=== PATIENT | female | born 1965 | race Caucasian/White ===

== ENCOUNTER 2016-08-10 10:11 | Observation (INO) | payer SELFPAY ==
[~2016-08-10] VITALS: Ht 160 cm; Wt 81.7 kg
[2016-08-10 10:52] LABS: BASOPHIL COUNT 0.1 K/uL (0-0.1); EOSINOPHIL (%) 1.3 % (0-5); EOSINOPHIL COUNT 0.1 K/uL (0-0.3); HEMATOCRIT 44.4 % (36.0-46.0); IMMATURE GRANULOCYTE (%) 0.7 % (0.0-0.7); IMMATURE GRANULOCYTE COUNT 0.1 K/uL; INSTRUMENT ABS NEUTROPHIL CT 6.7 K/uL; LYMPHOCYTE COUNT 2.3 K/uL (1.0-2.8); MCH 30.8 PG (29.0-34.0); MCHC 34.9 G/DL (30.0-36.0); MCV 88.3 FL (83-99); MEAN PLAT.VOLUME 11.1 uM^3 (9.5-12.4); MONOCYTE (%) 5.6 % (3-12); MONOCYTE COUNT 0.6 K/uL (0-0.8); NEUTROPHIL (%) 68.8 % (45-76); NEUTROPHIL COUNT 6.7 K/uL (1.8-6.4); PLATELET COUNT 244 K/uL (156-360); RBC DIS.WIDTH-CV 13.2 % (11.8-14.6); RED BLOOD COUNT 5.03 M/uL (3.80-5.20); WHITE BLOOD COUNT 9.8 K/uL (4.1-10.2)
[2016-08-10 11:11] LABS: CHLORIDE 103 mEq/L (99-109); POTASSIUM 3.9 mEq/L (3.7-5.4); SODIUM 137 mEq/L (136-147)
[2016-08-10 11:13] LABS: GLUCOSE 261 mg/dL (70-99)
[2016-08-10 11:15] LABS: ANION GAP 14 MEQ/L (2-14); TOTAL BILIRUBIN 0.5 mg/dL (0.0-1.0)
[2016-08-10 11:17] LABS: ALKALINE PHOSPHATASE 99 IU/L (3-129); GFR ESTIMATE (CALCULATED) > 59 mL/min/
[2016-08-10 11:18] LABS: UREA NITROGEN (BUN) 11 mg/dL (9-23)
[2016-08-10 11:21] LABS: TROP-I INTERPRETATION NEGATIVE; TROPONIN-I 0.03 ng/mL (0.0-0.30)
[2016-08-10 12:16] LABS: ADD MIUA? NO; BILIRUBIN NEGATIVE; BLOOD NEGATIVE; COLOR YELLOW ((YELLOW)); GLUCOSE (STRIP) >=500; KETONES NEGATIVE; LEUKOCYTES NEGATIVE; NITRITE NEGATIVE; PROTEIN (STRIP) NEGATIVE; SPECIFIC GRAVITY 1.006 (1.000-1.030); UROBILINOGEN 0.2 MG/DL (0.2-1.0)
[2016-08-10 13:23] LABS: HDL CHOLESTEROL 33 MG/DL (Desirable>=50); LDL CHOLESTEROL 150 mg/dL (Desirable<100); NON-HDL CHOLESTEROL 216 mg/dL (Desirable<160); TOTAL CHOLESTEROL 249 mg/dL (Desirable<200); TRIGLYCERIDES 329 MG/DL (Normal: <150)
[2016-08-10 14:24] LABS: Estimated Average Glucose 200 mg/dL (70-123); HEMOGLOBIN A1c (GLYCOHEMOGLOB) 8.6 % HGB (Below 5.7)
[2016-08-10 14:44] LABS: POINT-OF-CARE METER ID UU14162513
[2016-08-10 17:12] VITALS: BP 184/93
[2016-08-10 17:45] LABS: TROP-I INTERPRETATION NEGATIVE; TROPONIN-I 0.03 ng/mL (0.0-0.30)
[2016-08-10 18:35] VITALS: BP 158/84
[2016-08-10 19:40] VITALS: BP 152/88
[2016-08-10 21:07] LABS: METH RESISTANT S AUREUS PCR NEGATIVE (NEGATIVE)
[2016-08-10 21:15] LABS: PROBE CHECK PASS; SPECIMEN PROCESSING CONTROL PASS
[2016-08-11] VITALS (7 sets, daily range): BP systolic 144–190; BP diastolic 79–113
[2016-08-11 00:03] LABS: TROP-I INTERPRETATION NEGATIVE; TROPONIN-I 0.03 ng/mL (0.0-0.30)
[2016-08-11 12:46] LABS: POINT-OF-CARE METER ID UU13113700
[2016-08-11 16:09] LABS: POINT-OF-CARE METER ID UU13113700
[2016-08-12] VITALS (7 sets, daily range): BP systolic 108–177; BP diastolic 71–96
[2016-08-12 04:46] LABS: BASOPHIL COUNT 0.1 K/uL (0-0.1); EOSINOPHIL (%) 2.1 % (0-5); EOSINOPHIL COUNT 0.2 K/uL (0-0.3); HEMATOCRIT 43.1 % (36.0-46.0); IMMATURE GRANULOCYTE (%) 0.7 % (0.0-0.7); IMMATURE GRANULOCYTE COUNT 0.1 K/uL; INSTRUMENT ABS NEUTROPHIL CT 6.8 K/uL; LYMPHOCYTE COUNT 3.1 K/uL (1.0-2.8); MCH 30.4 PG (29.0-34.0); MCHC 34.1 G/DL (30.0-36.0); MCV 89.2 FL (83-99); MEAN PLAT.VOLUME 11.2 uM^3 (9.5-12.4); MONOCYTE (%) 8.7 % (3-12); NEUTROPHIL (%) 60.2 % (45-76); NEUTROPHIL COUNT 6.8 K/uL (1.8-6.4); PLATELET COUNT 240 K/uL (156-360); RBC DIS.WIDTH-CV 13.1 % (11.8-14.6); RBC DIS.WIDTH-SD 42.9 % (39-53); RED BLOOD COUNT 4.83 M/uL (3.80-5.20); WHITE BLOOD COUNT 11.3 K/uL (4.1-10.2)
[2016-08-12 05:15] LABS: CHLORIDE 101 mEq/L (99-109); POTASSIUM 3.7 mEq/L (3.7-5.4); SODIUM 135 mEq/L (136-147)
[2016-08-12 05:17] LABS: GLUCOSE 166 mg/dL (70-99)
[2016-08-12 05:18] LABS: ANION GAP 14 MEQ/L (2-14)
[2016-08-12 05:21] LABS: GFR ESTIMATE (CALCULATED) > 59 mL/min/
[2016-08-12 05:22] LABS: UREA NITROGEN (BUN) 14 mg/dL (9-23)
[2016-08-12 08:04] LABS: POINT-OF-CARE METER ID UU13113831
[2016-08-12 12:48] LABS: POINT-OF-CARE METER ID UU13113831
[2016-08-12 17:52] LABS: POINT-OF-CARE METER ID UU13113831
[2016-08-13 04:00] VITALS: BP 164/87
[2016-08-13 09:04] VITALS: BP 164/97
[2016-08-13] MEDS ORDERED: ASPIR-LOW81 MG PO (10:07)
[2016-08-13] MEDS ORDERED: LISINOPRIL40 MG PO (10:07)
[2016-08-13] MEDS ORDERED: HYDROCHLOROTHIA25 MG PO (10:07)
[2016-08-13] MEDS ORDERED: METFORMIN HCL500 MG PO (10:07)
[2016-08-13] MEDS ORDERED: ATORVASTATIN CA40 MG PO (10:07)
[2016-08-13] MEDS ORDERED: NICOTINE PATCH1 EAC2 TD (10:07)
[2016-08-13] MEDS ORDERED: LOPRESSOR25 MG PO (10:07)
== END 2016-08-13 11:58 | disposition home or self-care (01) ==
LOC: EME 10:11 → 5WEST 12:09 → EDOF 12:09 → 5WEST 13:29
PROVIDERS: Emergency Medicine; Hospitalist; Internal Medicine
DX: I16.0 Hypertensive urgency (principal); I10 Essential (primary) hypertension; I63.139 Cerebral infarction due to embolism of unspecified carotid artery; R53.1 Weakness; R07.89 Other chest pain; E78.5 Hyperlipidemia, unspecified; Z91.14 Patient's other noncompliance with medication regimen; J44.9 Chronic obstructive pulmonary disease, unspecified; E11.65 Type 2 diabetes mellitus with hyperglycemia; R94.31 Abnormal electrocardiogram [ECG] [EKG]
CPT/HCPCS: 70450; 70544; 70551; 71010; 80048; 80053; 80061; 81003; 82948; 83036; 84484; 85025; 87641; 93005; 93306; 93880; 99202; 99281; 99285; G0378; J0360; J1650; J1815; J2060; J7030

== ENCOUNTER 2016-12-13 10:04 | Inpatient (IN) | payer SELFPAY ==
[~2016-12-13] VITALS: Ht 160 cm; Wt 87.0 kg
[~2016-12-13 10:04] MED LIST: ASPIR-LOW81 MG PO; ATORVASTATIN CA40 MG PO; HYDROCHLOROTHIA25 MG PO; LISINOPRIL40 MG PO; LOPRESSOR25 MG PO; METFORMIN HCL500 MG PO; NICOTINE PATCH1 EAC2 TD
[2016-12-13 11:27] LABS: BASOPHIL COUNT 0.1 K/uL (0-0.1); EOSINOPHIL (%) 1.1 % (0-5); EOSINOPHIL COUNT 0.1 K/uL (0-0.3); HEMATOCRIT 42.8 % (36.0-46.0); IMMATURE GRANULOCYTE (%) 0.8 % (0.0-0.7); IMMATURE GRANULOCYTE COUNT 0.1 K/uL; INSTRUMENT ABS NEUTROPHIL CT 7.3 K/uL; LYMPHOCYTE COUNT 2.7 K/uL (1.0-2.8); MCH 30.6 PG (29.0-34.0); MCHC 34.3 G/DL (30.0-36.0); MEAN PLAT.VOLUME 10.3 uM^3 (9.5-12.4); MONOCYTE (%) 5.9 % (3-12); MONOCYTE COUNT 0.6 K/uL (0-0.8); NEUTROPHIL (%) 66.9 % (45-76); NEUTROPHIL COUNT 7.3 K/uL (1.8-6.4); PLATELET COUNT 247 K/uL (156-360); RBC DIS.WIDTH-CV 13.4 % (11.8-14.6); RBC DIS.WIDTH-SD 43.8 % (39-53); RED BLOOD COUNT 4.81 M/uL (3.80-5.20); WHITE BLOOD COUNT 10.9 K/uL (4.1-10.2)
[2016-12-13 11:38] LABS: CHLORIDE 100 mEq/L (99-109); POTASSIUM 3.4 mEq/L (3.7-5.4); SODIUM 137 mEq/L (136-147)
[2016-12-13 11:39] LABS: GLUCOSE 163 mg/dL (70-99)
[2016-12-13 11:41] LABS: ANION GAP 11 MEQ/L (2-14)
[2016-12-13 11:43] LABS: GFR ESTIMATE (CALCULATED) > 59 mL/min/
[2016-12-13 11:44] LABS: UREA NITROGEN (BUN) 13 mg/dL (9-23)
[2016-12-13 13:34] LABS: HDL CHOLESTEROL 35 MG/DL (Desirable>=50); LDL CHOLESTEROL 141 mg/dL (Desirable<100); NON-HDL CHOLESTEROL 192 mg/dL (Desirable<160); TOTAL CHOLESTEROL 227 mg/dL (Desirable<200); TRIGLYCERIDES 256 MG/DL (Normal: <150)
[2016-12-13 13:37] LABS: TROP-I INTERPRETATION NEGATIVE; TROPONIN-I < 0.01 ng/mL (0.0-0.30)
[2016-12-13 14:01] LABS: Estimated Average Glucose 143 mg/dL (70-123); HEMOGLOBIN A1c (GLYCOHEMOGLOB) 6.6 % HGB (Below 5.7)
[2016-12-13 15:58] VITALS: BP 146/75
[2016-12-13 16:10] LABS: POINT-OF-CARE METER ID UU14188625
[2016-12-13] MEDS ORDERED: CRESTOR40 MG PO (17:13)
[2016-12-13] MEDS ORDERED: ASPIR-LOW81 MG PO (17:13)
[2016-12-13] MEDS ORDERED: NASONEX17 GM BOTH NARES (17:13)
[2016-12-13] MEDS ORDERED: VITAMIN D22000 UNIT PO (17:14)
[2016-12-13] MEDS ORDERED: WELCHOL625 MG PO (17:14)
[2016-12-13] MEDS ORDERED: AMARYL2 MG PO (17:15)
[2016-12-13] MEDS ORDERED: LOPRESSOR100 M1 PO (17:19)
[2016-12-13] MEDS ORDERED: LOPRESSOR25 MG PO (17:19)
[2016-12-13] MEDS ORDERED: VISTARIL25 MG PO (17:20)
[2016-12-13 19:26] LABS: TROP-I INTERPRETATION NEGATIVE; TROPONIN-I 0.01 ng/mL (0.0-0.30)
[2016-12-13 20:15] VITALS: BP 115/66
[2016-12-13 23:37] VITALS: BP 120/79
[2016-12-14 01:08] LABS: TROP-I INTERPRETATION NEGATIVE; TROPONIN-I < 0.01 ng/mL (0.0-0.30)
[2016-12-14 04:00] VITALS: BP 134/81
[2016-12-14 06:34] LABS: ANION GAP 9 MEQ/L (2-14); CHLORIDE 99 MEQ/L (99-109); GFR ESTIMATE (CALCULATED) > 59 mL/min/; POTASSIUM 3.8 MEQ/L (3.7-5.4); SAMPLE HEMOLYSIS CHECK 0; SAMPLE ICTERIC CHECK 0; SAMPLE LIPEMIA CHECK 0; SODIUM 133 MEQ/L (136-147); UREA NITROGEN (BUN) 18 mg/dL (9-23)
[2016-12-14 06:35] LABS: GLUCOSE 107 mg/dL (70-99)
[2016-12-14 08:06] LABS: POINT-OF-CARE METER ID UU13113717
[2016-12-14 08:17] VITALS: BP 135/77
[2016-12-14] MEDS ORDERED: JANUVIA100 MG PO (11:21)
[2016-12-14 11:44] VITALS: BP 107/61
[2016-12-14 11:51] LABS: POINT-OF-CARE METER ID UU13113717
[2016-12-14] MEDS ORDERED: VISTARIL25 MG PO (12:18)
[2016-12-14 15:43] VITALS: BP 118/73
[2016-12-14 19:43] VITALS: BP 143/83
[2016-12-15 00:45] VITALS: BP 121/72
[2016-12-15 04:02] VITALS: BP 117/75
[2016-12-15 08:48] VITALS: BP 110/63
[2016-12-15 09:01] LABS: POINT-OF-CARE METER ID UU13113717
[2016-12-15] MEDS ORDERED: NICOTINE PATCH1 EAC2 TD (09:17)
[2016-12-15] MEDS ORDERED: BUPROPION HCL150 M2 PO (09:18)
[2016-12-15] MEDS ORDERED: CLOPIDOGREL75 MG PO (09:18)
[2016-12-15 12:30] LABS: POINT-OF-CARE METER ID UU13113717
[2016-12-20 16:33] LABS: ANTITHROMBIN III ACTIVITY+ 122 (80-120); DRVVT Mixing Study Interp Not Indicated (()); PROTEIN C FUNCTIONAL ACTIVITY+ 140 % (70-180); PTT-LA 32 sec (<=40); Protein S, Free 94 % normal (50-147); dRVVT Screen 34 sec (<=45)
== END 2016-12-15 12:35 | disposition home or self-care (01) | DRG 66 ==
LOC: EME 10:04 → 5SOUTH 12:52 → EDOF 12:52 → ENRESERV 12:54 → 5SOUTH 15:34
PROVIDERS: Emergency Medicine; Internal Medicine; Specialist
DX: I63.512 Cerebral infarction due to unspecified occlusion or stenosis of left middle cerebral artery (principal); E11.65 Type 2 diabetes mellitus with hyperglycemia; I10 Essential (primary) hypertension; G83.21 Monoplegia of upper limb affecting right dominant side; D72.829 Elevated white blood cell count, unspecified; E78.5 Hyperlipidemia, unspecified; E87.6 Hypokalemia; F17.210 Nicotine dependence, cigarettes, uncomplicated; J44.9 Chronic obstructive pulmonary disease, unspecified; Z79.4 Long term (current) use of insulin; Z82.5 Family history of asthma and other chronic lower respiratory diseases; Z86.73 Personal history of transient ischemic attack (TIA), and cerebral infarction without residual deficits; R11.0 Nausea; R26.89 Other abnormalities of gait and mobility; R41.89 Other symptoms and signs involving cognitive functions and awareness
CPT/HCPCS: 70450; 70551; 80048; 80061; 81240 90; 82948; 83036; 83090 90; 84484; 85025; 85240 90; 85300 90; 85303 90; 85305 90; 85306 90; 85613 90; 85730 90; 86146 90; 86147 90; 93005; 93880; 99202; 99281; 99285; C8923; J0360; J1650; J1815; J2060